=== PATIENT | male | born 1990 | race Caucasian/White ===

== ENCOUNTER → 2020-07-22 | Outpatient (CLI) | payer OTHER ==
[~2020-07-22] MED LIST: CEPHALEXIN500 MG PO; IBU800 MG PO; VITAMIN C500 M4 PO; VITAMIN D PO
== END ==
LOC: KOH-I 10:41
DX: S92.351A Displaced fracture of fifth metatarsal bone, right foot, initial encounter for closed fracture (principal); S99.911A Unspecified injury of right ankle, initial encounter; M19.071 Primary osteoarthritis, right ankle and foot; X50.1XXA Overexertion from prolonged static or awkward postures, initial encounter
CPT/HCPCS: 73610; 73630

== ENCOUNTER → 2020-08-16 | Outpatient (CLI) | payer OTHER | LOC: KOH-I 13:45 | DX: S93.491A Sprain of other ligament of right ankle, initial encounter (principal) | CPT/HCPCS: 73721 ==

== ENCOUNTER → 2020-08-19 | Outpatient (CLI) | payer OTHER | LOC: KOH-I 09:02 | DX: S92.351A Displaced fracture of fifth metatarsal bone, right foot, initial encounter for closed fracture (principal); X58.XXXA Exposure to other specified factors, initial encounter | CPT/HCPCS: 73630 ==

== ENCOUNTER → 2020-09-26 | Outpatient (CLI) | payer OTHER ==
[2020-09-26 11:41] LABS: RED BLOOD COUNT 5.09 M/UL (4.20-5.50); WHITE BLOOD COUNT 7.9 K/UL (4.5-11.0)
[2020-09-26 12:04] LABS: BUN/CREATININE RATIO 21 (0-10)
== END ==
LOC: OPSV2 10:30
PROVIDERS: Podiatrist Foot & Ankle Surgery
DX: Z01.812 Encounter for preprocedural laboratory examination (principal); S92.351K Displaced fracture of fifth metatarsal bone, right foot, subsequent encounter for fracture with nonunion; X58.XXXD Exposure to other specified factors, subsequent encounter
CPT/HCPCS: 36415; 80048; 82652; 85027

== ENCOUNTER → 2020-09-27 | Day surgery (SDC) | payer OTHER ==
[~2020-09-27] VITALS: Ht 177.8 cm; Wt 138.3 kg
== END | disposition home or self-care (01) ==
LOC: OR 06:04
PROVIDERS: Podiatrist Foot & Ankle Surgery
PROC: 0QUN07Z Supplement Right Metatarsal with Autologous Tissue Substitute, Open Approach (ICD-10-PCS; principal; 2020-09-27 07:45)
DX: S92.351A Displaced fracture of fifth metatarsal bone, right foot, initial encounter for closed fracture (principal); G89.29 Other chronic pain; I48.91 Unspecified atrial fibrillation; F41.9 Anxiety disorder, unspecified; F32.9 Major depressive disorder, single episode, unspecified; F41.0 Panic disorder [episodic paroxysmal anxiety]; F17.220 Nicotine dependence, chewing tobacco, uncomplicated; E66.01 Morbid (severe) obesity due to excess calories; Z68.41 Body mass index [BMI] 40.0-44.9, adult; Z20.822 Contact with and (suspected) exposure to COVID-19; W19.XXXA Unspecified fall, initial encounter
CPT/HCPCS: 73620; 73630; 76000; C1713; J0690; J1885; J2001; J2250; J2370; J2405; J2704; J2795; J3010; J3370; J7120; Q4133

== ENCOUNTER → 2020-10-17 | Outpatient (CLI) | payer OTHER | LOC: KOH-I 13:24 | DX: S92.351D Displaced fracture of fifth metatarsal bone, right foot, subsequent encounter for fracture with routine healing (principal); Z98.890 Other specified postprocedural states; X58.XXXD Exposure to other specified factors, subsequent encounter | CPT/HCPCS: 73610; 73630 ==

== ENCOUNTER → 2020-11-11 | Outpatient (CLI) | payer OTHER | LOC: KOH-I 13:17 | DX: S92.351A Displaced fracture of fifth metatarsal bone, right foot, initial encounter for closed fracture (principal) | CPT/HCPCS: 73630 ==

== ENCOUNTER → 2020-12-03 | Outpatient (CLI) | payer OTHER | LOC: KOH-I 13:06 | DX: S92.351A Displaced fracture of fifth metatarsal bone, right foot, initial encounter for closed fracture (principal); Z47.89 Encounter for other orthopedic aftercare | CPT/HCPCS: 73630 ==

== ENCOUNTER → 2020-12-31 | Outpatient (CLI) | payer OTHER | LOC: KOH-I 13:27 | DX: S92.351D Displaced fracture of fifth metatarsal bone, right foot, subsequent encounter for fracture with routine healing (principal); X58.XXXD Exposure to other specified factors, subsequent encounter | CPT/HCPCS: 73630 ==

== ENCOUNTER → 2021-01-28 | Outpatient (CLI) | payer OTHER | LOC: KOH-I 14:06 | DX: S92.351A Displaced fracture of fifth metatarsal bone, right foot, initial encounter for closed fracture (principal) | CPT/HCPCS: 73630 ==

== ENCOUNTER → 2021-02-27 | Outpatient (CLI) | payer OTHER | LOC: KOH-I 13:38 | DX: S92.351D Displaced fracture of fifth metatarsal bone, right foot, subsequent encounter for fracture with routine healing (principal) | CPT/HCPCS: 73630 ==

== ENCOUNTER → 2021-03-27 | Outpatient (CLI) | payer OTHER | LOC: KOH-I 12:59 | DX: S92.351D Displaced fracture of fifth metatarsal bone, right foot, subsequent encounter for fracture with routine healing (principal) | CPT/HCPCS: 73630 ==

== ENCOUNTER → 2021-08-08 | Day surgery (SDC) | payer OTHER ==
[~2021-08-08] VITALS: Ht 177.8 cm; Wt 149.7 kg
[2021-08-08 06:13] LABS: HEMOGLOBIN 14.4 gm/dl (14.0-17.5); RED BLOOD COUNT 4.98 M/UL (4.20-5.50); WHITE BLOOD COUNT 7.9 K/UL (4.5-11.0)
[2021-08-08 06:40] LABS: BUN/CREATININE RATIO 18 (0-10)
== END | disposition home or self-care (01) ==
LOC: OR 05:52
PROVIDERS: Podiatrist Foot & Ankle Surgery
DX: S92.351K Displaced fracture of fifth metatarsal bone, right foot, subsequent encounter for fracture with nonunion (principal); M24.874 Other specific joint derangements of right foot, not elsewhere classified; L90.5 Scar conditions and fibrosis of skin; Z20.822 Contact with and (suspected) exposure to COVID-19; X58.XXXD Exposure to other specified factors, subsequent encounter
CPT/HCPCS: 36415; 73630; 76000; 80048; 85027; C1713; C1763; J0690; J1100; J1885; J2001; J2250; J2405; J2704; J2795; J3010; J3370; J7030; J7120

== ENCOUNTER → 2021-11-20 | Outpatient (CLI) | payer OTHER | LOC: KOH-I 10:41 | DX: M79.671 Pain in right foot (principal) | CPT/HCPCS: 73630 ==